=== PATIENT | male | born 1960 | race Caucasian/White ===

== ENCOUNTER → 2017-06-24 | Outpatient (CLI) | payer OTHER ==
[~2017-06-24] MED LIST: OPTIRAY 320 IV PRN
--- NOTE | 2017-06-24 15:42 | DIAGNOSTIC IMAGING REPORT ---
ABD/PELVIS IV AND ORAL CONT HISTORY: 57 years-old Male GENERALIZED ABDOMINAL PAIN, H/O ABDOMINAL SURGERY COMPARISON: None available TECHNIQUE: Multiple axial CT images of the abdomen and pelvis were obtained following the intravenous administration of 94 mL Optiray 320. Oral contrast was also used. A dose lowering technique was used consistent with the principals of [place]. FINDINGS: There is mild subsegmental bibasilar atelectasis. There is no pneumoperitoneum. Symmetric appearing bilateral gynecomastia incidentally noted. The imaged inferior cardiac chambers are unremarkable. There is fatty infiltration of the liver. There is a focal area of increased attenuation involving the subserosal aspect of the lateral left hepatic lobe adjacent to the falciform ligament, 4.6 x 2.2 cm on image 22 suggesting focal fatty sparing or transient hepatic attenuation difference. The spleen, pancreas and adrenal glands are within normal limits. Gallbladder is mildly contracted. Kidneys, ureters and urinary bladder are unremarkable. Prostate is mildly prominent. There is moderate sized fat filled left inguinal hernia. The abdominal aorta is normal in course and caliber. No bulky retroperitoneal adenopathy. There is no bowel obstruction or focal bowel wall thickening. There are a few scattered noninflamed colonic diverticula. No CT evidence of acute diverticulitis. The appendix is air-filled and appears noninflamed. Small fat filled umbilical hernia is noted, diastases 1.2 cm. The bones appear intact. There is evidence of hardware removal involving the proximal right femur. Intervertebral disc space narrowing noted at L5-S1. IMPRESSION: 1. No acute intra-abdominal or intrapelvic abnormality identified. Normal appendix. 2. Colonic diverticulosis without diverticulitis. 3. Fatty infiltration of the liver with focal circumscribed subserosal area of increased attenuation involving the lateral left hepatic lobe suggesting transient hepatic attenuation difference or fatty sparing. 4. Small fat filled periumbilical and moderate sized fat filled left inguinal hernias. The above report was generated using voice recognition software. It may contain grammatical, syntax or spelling errors. Electronically signed by: Joshua Bailey M.D. 06/24/2017 3:40 PM Dictated Date/Time: 06/24/2017 3:32 PM
== END | disposition home or self-care (01) ==
LOC: C.CTS 14:59
PROVIDERS: ATTEND Internal Medicine
DX: R10.84 Generalized abdominal pain (principal); R14.0 Abdominal distension (gaseous); Z98.890 Other specified postprocedural states

== ENCOUNTER → 2017-10-23 | Outpatient (CLI) | payer OTHER ==
[~2017-10-23] VITALS: Ht 167.6 cm; Wt 102.8 kg
[2017-10-23 14:28] VITALS: BP 144/87; PULSE 71; Ht 167.6 cm; Wt 102.8 kg
== END | disposition home or self-care (01) ==
LOC: C.NEUR 13:13
PROVIDERS: ATTEND Internal Medicine Pulmonary Disease
DX: R53.81 Other malaise (principal); R53.83 Other fatigue; R06.83 Snoring; R06.81 Apnea, not elsewhere classified; G47.19 Other hypersomnia

== ENCOUNTER → 2017-11-10 | Outpatient (CLI) | payer OTHER ==
--- NOTE | 2017-11-11 05:54 | PAP/PSG TECHNICIAN REPORT ---
[facility] Mail Clerk Polysomnogram Report Study name: None Report date: 11/11/2017 Study date: 11/10/2017 Referring Physician: Fede Fitch M.D. Name: THOMAS MORATAYA Interpreting Physician: Fede Fitch M.D. Date of : 1960 Mail Clerk: Mariaelena Osei RPS. Sex: Male Age: 57 StudyType: PSG Weight: 226.6 lbs Height: 57 years, Height 5' 6" Neck Circum: 17 inches BMI: 36.57 Medications: Cyclobenzaprine 10 mg, Dicyclomine 20 mg, Docusate Sodium 100 mg, Gabapentin 300 mg, Miralax, Omeprazole 20 mg, Probiotic, Ibuprofen 200 mg, Senna Laxative 8.6 mg, Tamsulosin 0.4 mg, Triamcinolone Acetonide 0.1%, Patient History 57 yr. old male here for a modified split night sleep study if AHI >15 with two hours sleep in room 6. Patient complains of muscle tightness in his legs, EDS, and witnessed apneas. ESS 08/18. Parameters Monitored NPSG: E1-M2, E2-M1, Fp1-M2, Fp2-M1, F3-M2, F4-M2, F4-M1, C3-M2, C4-M2, C4-M1, O1-M2, O2-M2, O2-M1, T3-M2, T4-M1, P3-M2, P4-M1, CHIN1, CHIN2, HR, EKG, Legs, PFLOW, SNOR, FLOW, CFLOW, Tidal Volume, THOR, ABDO, SpO2, PLTH, CPRESS, ETCO2 Wave, ETCO2, pH Sleep Architecture Sleep Stages Time at Lights Off 10:15:13 PM STAGES Time (min.) TST (%) Time at Lights On 5:33:13 AM Wake 163.0 -- Total Recording Time (TRT) 438.00 min. N1 23.0 8 Total Sleep Period (TSP) 420.5 min. N2 128.5 47 Total Sleep Time (TST) 275.0min. N3 59.0 21 Awake Time 163.0 min. REM 64.5 23 Wake after Sleep Onset 145.5 min. Sleep Efficiency (SE) 63 % Sleep Onset Latency (SULAIMAN) 17.5 min. Number of Stage 1 Shifts None Awakenings 27 Stage Changes 81 Number of REM periods 5 REM 64.5 23 REM Latency 85.5 min. NREM 210.5 77 Body Position Analysis Supine Right Left Side Prone Vertical Total Sleep Time (min.) 111.1 83.6 94.0 177.64 0.0 10.8 Total Sleep Time (%) 35% 30% 34% 65 0% N/A% Total Sleep Time REM (min.) 19.8 18.5 26.2 None 0.0 0.0 Total Sleep Time NREM (min.) 77.5 65.1 67.8 None 0.0 0.0 Intermittent Wake (min.) 13.8 128.7 9.3 None 0.0 10.8 Total Sleep Period (%) 26% None None None None None Arousals Myoclonus (PLM) * Events Count Index Events Count Index Spontaneous 5 1 Events Awake (PLMW) 65 23.9 Respiratory 7 2.2 Events Asleep w/ Arousal (PLMA) 1 0.2 PLM 1 0 Events Asleep w/o Arousal (PLMS) 88 19.2 Snoring 10 2 Total Asleep 89 19.4 Total 22 5 Total 154 21 Respiratory Analysis * CA OA MA CH H RERA Total Count 1 4 0 0 34 0 39 Index 0.2 0.9 0.0 0 7.4 0 8.5 Mean Duration 10.0 21.2 0.0 0.00 31.9 0.0 30.2 Longest Duration 10.0 30.9 0.0 0.00 0.0 0.0 75.4 Respiratory Event Summary Total Supine ~Supine Right Left Prone REM NREM Apneas Count 5 4 1 0 1 N/A 4 1 Index 1.1 2 0 0.0 0.6 N/A 4 0 Hypopneas (4% Desat) Count 34 29 5 1 4 N/A 20 14 Index 7.4 17.9 2 0.7 2.6 N/A 18.6 4.0 Apneas & All Hypopneas Count 39 33 6 1 5 N/A 24 15 Index 8.5 20 2 1 3 N/A 22.3 4.3 Respiratory Events (Subsurface Augmentee Elint Operator+All Hyp+RERA) Count 39 33 6 1 5 N/A 24 15 Index 8.5 20 2 0.7 3.2 N/A 22.3 4.3 Respiratory Related Arousal Count 7 33 0 0 0 N/A 5 5 Index 2.2 6 0 0 0 N/A 5 1 Snoring Analysis Supine Right Left Prone REM NREM Total Snore duration 52.1 min Snores count 719 493 448 N/A 354 1,306 1,660 Snore mean duration 1.9 Sec Snores index 443 354 286 N/A 329.3 372.3 362.2 TST with snoring (%) 18.9% Desaturation Event Summary: Minimum %SpO2 Event Count Mean/Min/Max Duration(sec.) Desaturation Index % Time In Bed > 90 54 31.0 / 4.0 / 60.0 12.7 65.8 86 - 90 14 17.6 / 4.0 / 41.3 6.4 33.9 81 - 85 0 N/A 0.0 0.2 76 - 80 0 N/A 0.0 0.1 71 - 75 0 N/A 0.0 0.0 66 - 70 0 N/A 0.0 0.0 61 - 65 0 N/A 0.0 0.0 56 - 60 0 N/A 0.0 0.0 51 - 55 0 N/A 0.0 0.0 < 50 0 N/A 0.0 0.0 Total REM NREM Awake <50% 0.0 min. 0.0 min. 0.0 min. 0.0 min. 51 - 60% 0.0 min. 0.0 min. 0.0 min. 0.0 min. 61 - 70% 0.0 min. 0.0 min. 0.0 min. 0.0 min. 71 - 80% 0.5 min. 0.5 min. 0.0 min. 0.0 min. 81 - 90% 132.4 min. 18.1 min. 95.0 min. 19.3 min. 91 - 100% 255.5 min. 46.0 min. 115.5 min. 94.1 min. Average 91 91 91 92 Minimum SpO2 79 79 86 86 Desaturation Event Index 7.7 19.5 7.7 3.7 # Desat. Events below 89% 30 11 14 5 Time(%) with Saturation below 89% 3.6 1.4 1.8 0.4 Time(min.) with Saturation below 89% 14.0 5.3 6.9 1.7 Time (mins) REM (mins) NREM (mins) % of TST SpO2 Below 90% 40 18 N22 17.8 SpO2 Below 88% 13 0 0 2 Heart Rate Analysis Min (bpm) Max (bpm) Average (bpm) Awake 67 155 88 NREM 60 113 83 REM 63 106 81 Overall 60 113 82 Supplemental O2 Values Minimum O2 level: None Value Start Time End Time Mail Clerk Comments Mr. Morataya slept in the right, left, supine positions. No cardiac arrhythmia or PLMs noted. No bruxism noted. Snoring was noted and scored as a 4 on a scale of 0 through 5. (0=no snoring, 5=snoring loud enough to be heard through a closed door or down the conte way) Mr. Morataya awoke to use the restroom once during the night, at this time he felt wide awake. He walked that conte and sat in the room and watched TV before going back to bed. Mr. Morataya stated, that was a normal night. The final report will be interpreted and signed by a sleep physician. The completed physician report will then be placed in the patient medical record. Therapy (cm H2O) 0 TIB (min.) 438.0 TST (min.) 275.0 Sleep Onset (min.) 17.5 REM Onset From Sleep (min.) 85.5 Sleep Efficiency % 63 Wakefulness (%) 37 Wakefulness (min.) 163.0 NREM 1 (%) 8 NREM 1 (min.) 23.0 NREM 2 (%) 47 NREM 2 (min.) 128.5 NREM 3 (%) 21 NREM 3 (min.) 59.0 REM (%) 23 REM (min.) 64.5 # Arousals 22 Arousal Index 5 # Snore 1,660 Snore Index 362.2 AHI 8.5 AHI Supine 20 AHI Non-Supine 2 NREM AHI 4.3 REM AHI 22.3 RDI 8.5 # Obstructive Apnea 4 # Central Apnea 1 # Mixed Apnea 0 # Hypopneas 34 RERAs 0 Total Respiratory Events 41 Time Below SpO2 89% (min.) 12.3 Mean NREM SpO2 (%) 91 Mean REM SpO2 (%) 91 Mean Sleep SpO2 (%) 91 Min NREM SpO2 (%) 86 Min REM SpO2 (%) 79 Position Supine (min.) 111.1 Position Non-supine (min.) 177.6 LM Index Sleep 19.4 LM Index NREM 22.8 LM Index REM 8.4 Mean Heart Rate (bpm) 82 Min Heart Rate (bpm) 60
--- NOTE | 2017-11-12 16:16 | POLYSOMNOGRAPH REPORT ---
CLINICAL DATA: A 57-year-old male with BMI of 36.6 referred by myself and Dr. Souza with muscle tightness in his legs at night, excessive sleepiness, and witnessed apnea. His [place] sleepiness score is 10/24. SLEEP ARCHITECTURE: Total sleep period was 420.5 minutes. Total sleep time was 275 minutes divided between 210.5 minutes of non-REM sleep and 64.5 minutes of REM sleep. Sleep onset latency was 17.5 minutes. REM latency was 85.5 minutes. Sleep efficiency was 63%. Wake after sleep onset was elevated at 145.5 minutes. Sleep consisted of stage N1 8%, stage N2 47%, stage N3 21%, and REM 23%. AROUSAL DATA: 22 arousals were recorded for an index of 5 per hour. PLM DATA: 89 limb movements during sleep were noted for an index of 19.4 per hour with arousal index of 0.2 per hour. RESPIRATORY DATA: Very mild sleep apnea was documented. The AHI was 8.5. There was 1 central and 4 obstructive apneic episodes. The longest duration of apnea was 30.9 seconds. There were 34 hypopneic episodes with a mean duration of 32 seconds. OXIMETRY DATA: Nocturnal hypoxemia was seen. Oxygen oliver was 79% during REM. The mean saturation was 91%. Time below 89% was 14 minutes. EKG: Heart rates ranged from 60-113 beats per minute. No arrhythmias were noted. HOME HEALTH CAREGIVER'S COMMENTS: The patient slept in the right, left, and supine position. Snoring was severe, rated 4 on a scale of 1-5. He awoke once to use the restroom and then felt wide awake and was awake for an extended length of time through the night. He walked the conte, sat in the room watched TV before going back to bed. He states that is normal for him. IMPRESSION: Mild sleep apnea/hypopnea with an AHI of 8.5 with nocturnal hypoxemia. RECOMMENDATIONS: The patient may benefit from a repeat sleep study with CPAP or use of an oral appliance. Clinical correlation is needed.
== END | disposition home or self-care (01) ==
LOC: C.NEUR 21:00
PROVIDERS: ATTEND Internal Medicine Pulmonary Disease
DX: G47.19 Other hypersomnia (principal); R06.83 Snoring; R06.81 Apnea, not elsewhere classified

== ENCOUNTER → 2017-11-24 | Outpatient (CLI) | payer OTHER ==
[~2017-11-24] VITALS: Ht 167.6 cm; Wt 102.2 kg
[2017-11-24 14:23] VITALS: BP 136/87; PULSE 90; Ht 167.6 cm; Wt 102.2 kg
== END | disposition home or self-care (01) ==
LOC: C.NEUR 13:45
PROVIDERS: ATTEND Physician Assistant Medical
DX: G47.30 Sleep apnea, unspecified (principal); E66.9 Obesity, unspecified; G47.19 Other hypersomnia; R06.83 Snoring; R06.81 Apnea, not elsewhere classified

== ENCOUNTER → 2017-12-08 | Outpatient (CLI) | payer OTHER ==
--- NOTE | 2017-12-09 06:22 | PAP/PSG TECHNICIAN REPORT ---
[facility] Insurance Job Titles Polysomnogram Report Study name: None Report date: 12/09/2017 Study date: 12/08/2017 Referring Physician: Fede Fitch M.D. Name: THOMAS MORATAYA Interpreting Physician: Fede Fitch M.D. Date of : 1960 Insurance Job Titles: Lorena Rosenthal RPSGT. Sex: Male Age: 57 Study Type: PSG PAP Weight: 226 lbs 17 in Height: 57 years, Height 5' 6" Neck Circum: BMI: 36.47 Medications: Cyclobenzaprine 10 mg, Dicyclomine 20 mg, Docusate Sodium 100 mg, Gabapentin 300 mg, Miralax, Omeprazole 20 mg, Probiotic, Ibuprofen 200 mg, Senna Laxative 8.6 mg, Tamsulosin 0.4 mg, Triamcinolone Acetonide 0.1%, Patient History 57 yr-old male here for a new CPAP treatment study. He was found to be positive for NEFTALI with an AHI of 8.5. He chose a Simplus full face mask size large from [employer]. The test was started on room air and 4 CMH2O. ETCO2 testing was not utilized during this study. Room 1 He expressed interest in choosing his own DME company that is closer to his home. A list of a couple of companies is included in his chart. Parameters Monitored NPSG: E1-M2, E2-M1, Fp1-M2, Fp2-M1, F3-M2, F4-M2, F4-M1, C3-M2, C4-M2, C4-M1, O1-M2, O2-M2, O2-M1, T3-M2, T4-M1, P3-M2, P4-M1, CHIN1, CHIN2, HR, EKG, Legs, PFLOW, SNOR, FLOW, CFLOW, Tidal Volume, THOR, ABDO, SpO2, PLTH, CPRESS, ETCO2 Wave, ETCO2, pH Sleep Architecture Sleep Stages Time at Lights Off 10:46:59 PM STAGES Time (min.) TST (%) Time at Lights On 5:29:29 AM Wake 80.5 -- Total Recording Time (TRT) 402.50 min. N1 24.5 8 Total Sleep Period (TSP) 398.0 min. N2 178.5 55 Total Sleep Time (TST) 322.0min. N3 41.5 13 Awake Time 80.5 min. REM 77.5 24 Wake after Sleep Onset 76.0 min. Sleep Efficiency (SE) 80 % Sleep Onset Latency (SULAIMAN) 4.5 min. Number of Stage 1 Shifts None Awakenings 16 Stage Changes 61 Number of REM periods 7 REM 77.5 24 REM Latency 61.5 min. NREM 244.5 76 Body Position Analysis Supine Right Left Side Prone Vertical Total Sleep Time (min.) 223.5 77.0 83.6 160.57 0.0 0.0 Total Sleep Time (%) 50% 24% 26% 50 0% N/A% Total Sleep Time REM (min.) 31.0 13.5 33.0 None 0.0 0.0 Total Sleep Time NREM (min.) 130.4 63.5 50.6 None 0.0 0.0 Intermittent Wake (min.) 62.0 12.5 6.0 None 0.0 0.0 Total Sleep Period (%) 56% None None None None None Arousals Myoclonus (PLM) * Events Count Index Events Count Index Spontaneous 25 5 Events Awake (PLMW) 29 21.6 Respiratory 2 0.4 Events Asleep w/ Arousal (PLMA) 6 1.1 PLM 6 1 Events Asleep w/o Arousal (PLMS) 276 51.4 Snoring 5 1 Total Asleep 282 52.5 Total 38 7 Total 311 46 Respiratory Analysis * CA OA MA CH H RERA Total Count 0 0 0 0 13 0 13 Index 0.0 0.0 0.0 0 2.4 0 2.4 Mean Duration 0.0 0.0 0.0 0.00 16.6 0.0 16.6 Longest Duration 0.0 0.0 0.0 0.00 0.0 0.0 21.0 Respiratory Event Summary Total Supine ~Supine Right Left Prone REM NREM Apneas Count 0 0 0 0 0 N/A 0 0 Index 0.0 0 0 0.0 0.0 N/A 0 0 Hypopneas (4% Desat) Count 13 11 2 0 2 N/A 4 9 Index 2.4 4.1 1 0.0 1.4 N/A 3.1 2.2 Apneas & All Hypopneas Count 13 11 2 0 2 N/A 4 9 Index 2.4 4 1 0 1 N/A 3.1 2.2 Respiratory Events (Epic Anesthesia Analyst+All Hyp+RERA) Count 13 11 2 0 2 N/A 4 9 Index 2.4 4 1 0.0 1.4 N/A 3.1 2.2 Respiratory Related Arousal Count 2 11 1 0 1 N/A 0 2 Index 0.4 0 0 0 1 N/A 0 0 Snoring Analysis Supine Right Left Prone REM NREM Total Snore duration 30.4 min Snores count 1,234 289 1 N/A 218 1,306 1,524 Snore mean duration 1.2 Sec Snores index 459 225 1 N/A 168.8 320.5 284.0 TST with snoring (%) 9.4% Desaturation Event Summary: Minimum %SpO2 Event Count Mean/Min/Max Duration(sec.) Desaturation Index % Time In Bed > 90 41 23.4 / 5.3 / 59.3 8.7 83.8 86 - 90 1 16.8 / 16.8 / 16.8 1.1 16.1 81 - 85 1 5.5 / 5.5 / 5.5 225.0 0.1 76 - 80 0 N/A 0.0 0.0 71 - 75 0 N/A 0.0 0.0 66 - 70 0 N/A 0.0 0.0 61 - 65 0 N/A 0.0 0.0 56 - 60 0 N/A 0.0 0.0 51 - 55 0 N/A 0.0 0.0 < 50 0 N/A 0.0 0.0 Total REM NREM Awake <50% 0.0 min. 0.0 min. 0.0 min. 0.0 min. 51 - 60% 0.0 min. 0.0 min. 0.0 min. 0.0 min. 61 - 70% 0.0 min. 0.0 min. 0.0 min. 0.0 min. 71 - 80% 0.1 min. 0.0 min. 0.0 min. 0.1 min. 81 - 90% 54.7 min. 7.8 min. 46.0 min. 0.9 min. 91 - 100% 282.4 min. 67.4 min. 185.5 min. 29.5 min. Average 92 93 92 94 Minimum SpO2 78 82 86 78 Desaturation Event Index 6.3 10.1 5.4 5.2 # Desat. Events below 89% 7 4 2 1 Time(%) with Saturation below 89% 0.6 0.3 0.3 0.1 Time(min.) with Saturation below 89% 2.0 0.9 0.9 0.2 Time (mins) REM (mins) NREM (mins) % of TST SpO2 Below 90% 30 12 N18 1.6 SpO2 Below 88% 2 0 0 0 Heart Rate Analysis Min (bpm) Max (bpm) Average (bpm) Awake 48 122 86 NREM 60 127 81 REM 51 111 83 Overall 51 127 81 Supplemental O2 Values Minimum O2 level: None Value Start Time End Time Insurance Job Titles Comments Mr. Morataya slept in the right, left, and supine positions. No cardiac arrhythmias were noted. Some PLMs were noted. No bruxism noted. CPAP was initiated at +4 CMH2O and up-titrated to a level of +7 CMH2O, Cflex 3 which nearly eliminated all respiratory events and snoring. A Simplus full face mask size large from [employer] was used during titration He awoke to use the restroom one time during the night. He then sat up for a while and had to eat something. Mr. Morataya stated that he slept but pain in his legs and feet bothered him. The final report will be interpreted and signed by a sleep physician. The completed physician report will then be placed in the patient medical record. CPAP REPORT Therapy Detail Time / Page # Comment CPAP 4 cm H2O Full Face Mask Flex Pressure Relief Humidifier on 10:43:08 PM / pg. 361 CPAP 5 cm H2O Full Face Mask Flex Pressure Relief Humidifier on 12:11:14 AM / pg. 537 INCREASED FOR SNORING CPAP 6 cm H2O Full Face Mask Flex Pressure Relief Humidifier on 2:30:31 AM / pg. 816 INCREASED AT HIS REQUEST FOR MORE AIR CPAP 7 cm H2O Full Face Mask Flex Pressure Relief Humidifier on 4:35:40 AM / pg. 1066 INCREASED FOR MORE HYPOPNEAS AND SNORING WHILE SUPINE Therapy Event: Therapy (cm H20) 4 5 6 7 Total Time at Pressure (min.) 84.3 139.3 125.1 53.8 TST at Pressure (min.) 79.8 75.7 114.7 51.8 # Periods 1 1 1 1 Sleep Onset (min.) 4.5 0.0 6.0 0.0 REM Onset (min.) 66.0 55.2 56.5 35.8 Sleep Efficiency % 94 54 91 96 Wakefulness (%) 5.3 45.6 8.4 3.7 Wakefulness (min.) 4.5 63.5 10.5 2.0 NREM 1 (%) 7.1 3.2 7.2 9.3 NREM 1 (min.) 6.0 4.5 9.0 5.0 NREM 2 (%) 27.6 35.7 58.1 61.0 NREM 2 (min.) 23.3 49.7 72.7 32.8 NREM 3 (%) 43.9 3.2 0.0 0.0 NREM 3 (min.) 37.0 4.5 0.0 0.0 REM (%) 16.0 12.2 26.4 26.0 REM (min.) 13.5 17.0 33.0 14.0 # Arousals 5 12 11 10 Arousal Index 3.8 9.5 5.8 11.6 # Snore 325 502 251 446 Snore Index 244.5 397.6 131.3 516.4 AHI 0.0 4.8 1.0 5.8 AHI Supine 0.0 4.8 0.0 5.8 AHI Non-Supine 0.0 N/A 1.4 N/A NREM AHI 0.0 2.0 1.5 7.9 REM AHI 0.0 14.1 0.0 0.0 RDI 0.0 4.8 1.0 5.8 # Obstructive 0 0 0 0 # Central Ap 0 0 0 0 # Mixed 0 0 0 0 # Hypopneas 0 6 2 5 RERAS 0 0 0 0 Total Respiratory Events 0 6 2 5 Time Below SpO2 89.00% (min.) 0.4 1.3 0.0 0.1 Mean NREM SpO2 (%) 91 91 93 92 Mean REM SpO2 (%) 91 92 94 92 Mean Sleep SpO2 (%) 91 91 93 92 Min NREM SpO2 (%) 88 86 89 89 Min REM SpO2 (%) 89 82 92 82 Position Supine (min.) 2.8 75.7 31.1 51.8 Position Non-supine (min.) 77.0 0.0 83.6 0.0 LM Index Sleep 16.6 102.2 32.4 79.9 LM Index NREM 16.3 118.5 43.3 98.4 LM Index REM 17.8 45.9 5.5 30.0 Mean Heart Rate (bpm) 85 82 80 77 Min Heart Rate (bpm) 64 60 63 51
--- NOTE | 2017-12-11 14:26 | POLYSOMNOGRAPH REPORT ---
CLINICAL DATA: A 57-year-old male with a BMI of 36.5, referred by Dr. Souza and myself for a CPAP study. He had a sleep study which showed mild sleep apnea with an AHI of 8.5. He used Simplus full face mask, size large, from [employer]. SLEEP ARCHITECTURE: Total sleep period was 398 minutes. Total sleep time was 322 minutes divided between 244.5 minutes of non-REM sleep and 77.5 minutes of REM sleep. Sleep onset latency was 4.5 minutes. REM latency was 61.5 minutes. Sleep efficiency was 80%. Wake after sleep onset was 76 minutes. Sleep consisted of stage N1 8%, stage N2 55%, stage N3 13%, and REM 24%. AROUSAL DATA: 38 arousals were recorded for an index of 7 per hour. PERIODIC LIMB MOVEMENT DATA: Significantly elevated limb movements during sleep were noted. There were 282 limb movements during sleep noted for an index of 52.5 per hour with arousal index of 1 per hour. RESPIRATORY DATA: The AHI was 2.4. There were 13 hypopneic episodes with the mean duration of 16.6 seconds. OXIMETRY DATA: Transient hypoxemia was seen. Oxygen oliver was 82% during REM. Mean saturation was 92%. Time below 88% was 2 minutes. EKG: Heart rates ranged from 60-127 beats per minute. No arrhythmias were noted. EDUCATION TECHNICIAN'S COMMENTS AND TREATMENT SUMMARY: The patient slept in the right, left and supine positions. CPAP was titrated up to 7 cm of water pressure, C-Flex setting 3. At his final pressure setting, the patient slept for 52 minutes with an AHI of 5.8. He had pain in his legs and feet through the night which bothered him. He did sit up in the middle of the night and had something to eat. IMPRESSION: Mild sleep apnea/hypopnea, improved on CPAP 7 cm of water pressure, C-Flex setting 3. RECOMMENDATIONS: The patient should be seen back in followup to begin treatment with CPAP. JOY
== END | disposition home or self-care (01) ==
LOC: C.NEUR 20:00
PROVIDERS: ATTEND Physician Assistant Medical
DX: G47.30 Sleep apnea, unspecified (principal)

== ENCOUNTER → 2018-03-16 | Outpatient (CLI) | payer OTHER ==
[~2018-03-16] VITALS: Ht 167.6 cm; Wt 104.9 kg
[2018-03-16 13:49] VITALS: BP 139/90; PULSE 88; Ht 167.6 cm; Wt 104.9 kg
== END | disposition home or self-care (01) ==
LOC: C.NEUR 12:55
PROVIDERS: ATTEND Internal Medicine Pulmonary Disease
DX: G47.30 Sleep apnea, unspecified (principal); E66.9 Obesity, unspecified; G25.81 Restless legs syndrome